=== PATIENT | female | born 1990 | race Caucasian/White ===

== ENCOUNTER 2022-10-20 18:37 | Emergency (ER) | payer BC, SELFPAY ==
--- NOTE | 2022-10-20 18:44 | ED.WOUNDLAC ---
HPI - Wound/Laceration General Chief Complaint: Wound/Laceration Stated Complaint: Right Hand Laceration Time Seen by Provider: 10/20/22 18:44 Source: patient Mode of arrival: ambulatory Limitations: no limitations History of Present Illness HPI narrative: Patient is a 31-year-old female who presents with laceration to right index finger. Patient states she was doing dishes when she cut her finger. Bleeding is now controlled, reports mild stinging to finger. Unsure when last tetanus shot was. Denies any numbness or tingling to the the distal tip of finger. Related Data Allergies Allergy/AdvReac Type Severity Reaction Status Date / Time No Known Allergies Allergy Verified 10/20/22 19:24 Review of Systems Review of Systems: All systems reviewed & are unremarkable except as noted in HPI and below Constitutional: Constitutional: Denies body ache(s), Denies chills, Denies fatigue, Denies fever(s), Denies headache(s), Denies malaise and Denies weakness Eyes: Eyes: Denies blurry vision, Denies irritation and Denies loss of vision ENT: Denies otalgia, Denies headache(s), Denies nasal discharge, Denies sinus pain and Denies sore throat Cardiovascular: Cardiovascular: Denies chest pain, Denies irregular heart rhythm and Denies dyspnea Respiratory: Respiratory: Denies dyspnea Gastrointestinal: Gastrointestinal: Denies abdominal pain, Denies melena, Denies hematochezia, Denies diarrhea, Denies nausea and Denies vomiting Musculoskeletal: Musculoskeletal: Denies back pain, Denies myalgias and Denies arthralgias Integumentary/Breasts: Skin/Breast: Denies pruritus, Denies rash and Reports wounds (Laceration right index finger) Neurologic: Denies headache(s), Denies loss of vision and Denies weakness Psychiatric: Psychiatric: Reports no additional psychiatric complaints Endocrine: Endocrine: Denies fatigue PMFSH Comments At time of signature, agree with nursing past medical, surgical, social and family history. There is no relevant family history pertinent to the presenting complaint. Exam Const: General: cooperative, healthy appearing, comfortable, no acute distress and well nourished Nutritional Appearance: well nourished Orientation/consciousness: patient oriented x3 Limitations: no limitations HENMT: Head: normal to inspection, normocephalic and atraumatic Ears: hearing grossly normal bilaterally and external ears normal Face/Nose/Sinus: Normal external nose present, normal facial exam and face symmetric Face and sinus: normal facial exam and face symmetric Mouth: Yes lip normal Eyes: General: appearance normal, both eyes and all related structures Alignment and Position: alignment normal and position normal Periorbital: periorbital findings normal Eyelids: eyelids normal Pupils: Equal, round and reactive pupils present EOM: EOMs intact bilaterally Neck: Neck: normal visual inspection, full ROM and supple Chest: Chest palpation & inspection: normal inspection of the chest Resp: Effort & Inspection: normal respiratory effort and able to speak in complete sentences Auscultation: clear to auscultation bilaterally Cardio: Rate: regular rate Rhythm: regular rhythm Heart sounds: S1 normal heart sound present and S2 normal heart sound present GI: Inspection: normal to inspection Skin: General skin exam: normal color and no rashes or lesions noted Neuro: General: patient oriented x3 and moves all extremities Cranial nerves: Yes Equal, round and reactive pupils present Speech: normal speech Gait exam (Neuro): Normal gait present Extrem: General: normal to inspection, full ROM and no edema Psych: Appearance: grossly normal and well kempt Mental Status: mental status grossly normal Speech and movement: Normal speech and movement present Affect: normal affect Attitude: cooperative Thought process: Normal thought process present Course Course Emergency Course: Patient is aware of diagnosis, understands and a
[2022-10-20 19:04] VITALS: BP 127/75; PULSE 79; RESP 16; TEMP 37.1; O2SAT 100
[2022-10-20] MEDS: TETANUS,DIPHTHERIA,AC PERTUSSIS ADULT (0.5 ML) BOOSTRIX IM (19:25)
== END 2022-10-20 19:45 | disposition home or self-care (01) ==
PROVIDERS: Emergency Provider Nurse Practitioner Family; PCP Internal Medicine
DX: S61.210A Laceration without foreign body of right index finger without damage to nail, initial encounter (principal); X58.XXXA Exposure to other specified factors, initial encounter; Z23 Encounter for immunization
CPT/HCPCS: 12001; 90471; 90715; 99213; G0463

== ENCOUNTER 2022-10-21 11:33 | Emergency (ER) | payer BC, SELFPAY ==
[2022-10-21 11:42] VITALS: BP 118/73; PULSE 72; RESP 16; TEMP 36.6; O2SAT 100
--- NOTE | 2022-10-21 11:42 | ED.WOUNDLAC ---
HPI - Wound/Laceration General Chief Complaint: Wound/Laceration Stated Complaint: Wound Check Time Seen by Provider: 10/21/22 11:45 Source: patient Mode of arrival: ambulatory Limitations: no limitations History of Present Illness HPI narrative: Severe is a 31-year-old female patient presenting to clinic today for a wound follow-up. She reports that she was seen in the [facility] yesterday and had cut to her right 2nd finger dorsal knuckle from a knife when she was washing dishes. The provider who saw her yesterday glued it shut and she stated she brushed her finger on her pants today and it popped open. States she was at the [facility] when this happened and they gave her liquid Band-Aid to place on the wound. Tetanus shot was given yesterday. States that she has not yet picked up the antibiotic that was prescribed. Related Data Home Medications Medication Instructions Recorded Confirmed albuterol sulfate 90 mcg/actuation 2 puff inhalation DIRECTED 10/21/22 10/21/22 aerosol inhaler cholecalciferol (vitamin D3) 1,250 1,250 unit PO WEEKLY 10/21/22 10/21/22 mcg (50,000 unit) capsule fluticasone 100 mcg-salmeterol 50 1 inh inhalation DAILY 10/21/22 10/21/22 mcg/dose blistr powdr for inhalation (Advair Diskus) Allergies Allergy/AdvReac Type Severity Reaction Status Date / Time No Known Allergies Allergy Verified 10/21/22 11:38 Review of Systems Review of Systems: Pertinent positives per HPI. Patient denies any fever, chills, rash, headache, visual changes, dizziness, cough, runny nose, sore throat, shortness of breath, chest pain, palpitations, nausea, vomiting, diarrhea, constipation, abdominal pain, or any urinary issues. PMFSH Comments At the time of my signature, I reviewed and agree with the nursing past medical, surgical, social, and family history. There is no relevant family history pertinent to the patient complaint. Exam Narrative: General: Well-developed, well nourished, in no apparent distress Head: Normocephalic, atraumatic. Cardio: Regular rate and rhythm, s1 and s2 normal, no murmur appreciated. Resp: Clear to auscultation bilaterally, no rhonchi, rales, wheezing or rubs. Integumentary: [place], warm, and dry, intact without lesion, closed wound to the right 2nd finger knuckle without redness or swelling Course Course Emergency Course: Portions of this record may have been created with voice recognition software. Level of Care: Express Care Visit Vital Signs Vital signs: Vital signs reviewed MDM - Wound/Laceration MDM Narrative Medical decision making narrative: At the time of visit patient is resting comfortably on the exam table. At this time patient's wound is closed due to the liquid Band-Aid. One steri-Strips remains in place. Will apply metal splint to the finger to avoid re-dehiscence and have the patient take antibiotic that was previously prescribed. Supportive measures were discussed with the patient she voiced understanding of discharge instructions and agrees to treatment plan. Differential Diagnosis Differential diagnosis: Likely laceration and other (Dehisced wound) Discharge Plan Discharge Clinical Impression: Dehiscence of wound Patient Disposition: Home, Self-Care Condition: Stable Instructions: Antibiotic Form, Wound Dehiscence (ED) Additional Instructions: Leave bandage on for 24 hours then may remove and apply band aide covering as needed. Keep wound clean and dry Watch for signs and symptoms of infection- redness, streaking, swelling, purulent discharge, or increase in pain. Follow up with your PCP for suture removal or return to the Express care. Prescriptions: No Action cephalexin 500 mg capsule 500 mg PO BID 5 Days Qty: 10 0RF fluticasone propion-salmeterol [Advair Diskus] 100-50 mcg/dose blister with device 1 inh INHALATION DAILY albuterol sulfate 90 mcg/actuation HFA aerosol inhaler 2 puff INH
== END 2022-10-21 11:56 | disposition home or self-care (01) ==
PROVIDERS: Emergency Provider Nurse Practitioner Family; PCP Internal Medicine
DX: T81.33XA Disruption of traumatic injury wound repair, initial encounter (principal); J45.909 Unspecified asthma, uncomplicated
CPT/HCPCS: 99212; G0463

== ENCOUNTER 2023-04-19 13:31 | Emergency (ER) | payer BC, SELFPAY ==
--- NOTE | 2023-04-19 13:39 | ED.EYEPROB ---
HPI - Eye Problem General Chief complaint: Eye Problems Stated complaint: left eye red Time Seen by Provider: 04/19/23 13:38 Source: patient, RN notes reviewed and old records reviewed Mode of arrival: ambulatory Limitations: no limitations History of Present Illness HPI Narrative: 32-year-old female presents to the [facility] with left eye redness that started this morning. Normally wears contact lenses, took them out. Denies any pain reports watering itchiness and irritation. States there was some crusting to the lower lid this any blurry vision or change in vision denies any trauma Onset (ago): hour(s) Related Data Home Medications Medication Instructions Recorded Confirmed albuterol sulfate 90 mcg/actuation 2 puff inhalation DIRECTED 10/21/22 04/19/23 aerosol inhaler Allergies Allergy/AdvReac Type Severity Reaction Status Date / Time No Known Allergies Allergy Verified 04/19/23 13:44 Review of Systems Review of Systems: All systems reviewed & are unremarkable except as noted in HPI and below Constitutional: Constitutional: Reports no additional constitutional complaints Eyes: Eyes: Reports as per HPI, Reports eye discharge, Reports irritation and Reports itchy eyes ENT: Reports system reviewed and no additional complaints, except as documented Cardiovascular: Cardiovascular: Reports no additional cardiovascular complaints, Denies chest pain and Denies dyspnea Respiratory: Respiratory: Reports no additional respiratory complaints, Denies chest congestion, Denies cough and Denies dyspnea Gastrointestinal: Gastrointestinal: Reports no additional gastrointestinal complaints, Denies abdominal pain, Denies nausea and Denies vomiting Musculoskeletal: Musculoskeletal: Reports no additional musculoskeletal complaints Integumentary/Breasts: Skin/Breast: Reports system reviewed and no additional complaints, except as docu Neurologic: Reports system reviewed and no additional complaints, except as documented Psychiatric: Psychiatric: Reports no additional psychiatric complaints Allergic/Immunologic: Allergic/Immunologic: Reports no additional allergic/immunologic complaints PMFSH Comments At the time of my signature, I reviewed and agree with the nursing past medical, surgical, social, and family history. There is no relevant family history pertinent to the patient complaint. Exam Const: General: cooperative, healthy appearing, comfortable, no acute distress, well developed, alert and well nourished Nutritional Appearance: well nourished Orientation/consciousness: patient oriented x3 Limitations: no limitations HENMT: Head: normal to inspection Ears: hearing grossly normal bilaterally, external ears normal, TM's normal bilaterally, EAC's normal, mastoids normal and no periauricular adenopathy Face/Nose/Sinus: Normal external nose present, Normal nares present, Normal nasal mucous membranes and turbinates present, normal facial exam and face symmetric Face and sinus: normal facial exam and face symmetric Mouth: Yes Normal oral and palatal mucosa present, Yes lip normal and Yes moist mucous membranes Throat: posterior oropharynx normal and uvula midline Eyes: General: appearance normal, both eyes and all related structures Alignment and Position: alignment normal Periorbital: periorbital findings normal Conjunctivae: conjunctival abnormality left conjunctival injection and discharge Pupils: Equal, round and reactive pupils present EOM: EOMs intact bilaterally Neck: Neck: normal visual inspection, full ROM, no lymphadenopathy and no meningeal signs Chest: Chest palpation & inspection: normal inspection of the chest Resp: Effort & Inspection: normal respiratory effort and able to speak in complete sentences Auscultation: clear to auscultation bilaterally, no crackles, no rales, no rhonchi and no wheezes Cardio: Rate: regular rate Rhythm: regular rhythm Back/Spine/Pelvis: Cervical Spine: cervi
[2023-04-19 13:42] VITALS: BP 138/91; PULSE 93; RESP 16; TEMP 37.1; O2SAT 99
[2023-04-19 13:44] VITALS: BP 138/91; PULSE 93; RESP 16; TEMP 37.1; O2SAT 99
== END 2023-04-19 13:55 | disposition home or self-care (01) ==
PROVIDERS: Emergency Provider Nurse Practitioner; PCP Internal Medicine
DX: H10.32 Unspecified acute conjunctivitis, left eye (principal); J45.909 Unspecified asthma, uncomplicated
CPT/HCPCS: 99213; G0463